=== PATIENT | male | born 1960 | race Caucasian/White ===

== ENCOUNTER → 2021-01-10 | Outpatient (CLI) | payer OTHER | LOC: KOH-I 16:00 | DX: Z87.891 Personal history of nicotine dependence (principal); R91.8 Other nonspecific abnormal finding of lung field; I25.10 Atherosclerotic heart disease of native coronary artery without angina pectoris | CPT/HCPCS: 71271 ==

== ENCOUNTER → 2021-09-13 | Outpatient (CLI) | payer MEDICARE | LOC: KOH-I 08:30 | DX: R14.0 Abdominal distension (gaseous) (principal); R19.7 Diarrhea, unspecified; M51.36 Other intervertebral disc degeneration, lumbar region; E78.2 Mixed hyperlipidemia; I10 Essential (primary) hypertension; M19.071 Primary osteoarthritis, right ankle and foot | CPT/HCPCS: 74176 ==